=== PATIENT | female | born 1955 | race Caucasian/White ===

== ENCOUNTER 2020-09-27 08:04 | Emergency (ER) | payer MEDICAID, MEDICARE, OTHER ==
[~2020-09-27] VITALS: Ht 149.9 cm; Wt 59.9 kg
[2020-09-27 09:04] LABS: BASO % 0.2 % (0.0-1.0); EOS % 0.2 % (0.0-3.0); HEMATOCRIT 44.1 % (36.0-47.0); HEMOGLOBIN 13.4 g/dl (12.0-15.5); LYMPH # 1.1 10^3/uL (1.5-5.0); LYMPH % 8.2 % (24.0-44.0); MEAN CORPUSCULAR HEMOGLOBIN 27.3 pg (27.0-33.0); MEAN CORPUSCULAR HGB CONC 30.4 g/dl (32.0-36.5); MEAN CORPUSCULAR VOLUME 89.8 fl (80.0-96.0); MONO % 15.4 % (2.0-8.0); NEUTROPHILS % 75.6 % (36.0-66.0); PLATELET COUNT, AUTOMATED 693 10^3/uL (150-450); RED BLOOD COUNT 4.91 10^6/uL (4.00-5.40)
[2020-09-27 09:05] LABS: WHITE BLOOD COUNT 13.2 10^3/uL (4.0-10.0)
[2020-09-27 09:28] LABS: ALBUMIN 3.5 GM/DL (3.2-5.2); ALT/SGPT 16 U/L (12-78); BILIRUBIN,DIRECT 0.1 MG/DL (0.0-0.2); BILIRUBIN,TOTAL 0.4 MG/DL (0.2-1.0); BLOOD UREA NITROGEN 25 MG/DL (7-18); CALCIUM LEVEL 9.9 MG/DL (8.8-10.2); CARBON DIOXIDE LEVEL 25 MEQ/L (21-32); CHLORIDE LEVEL 106 MEQ/L (98-107); CK-MB VALUE MASS < 1.0 NG/ML (<3.6); CPK CREATINE PHOSPHOKINASE 26 U/L (26-192); CREATININE FOR GFR 0.41 MG/DL (0.55-1.30); GLOMERULAR FILTRATION RATE > 60.0 (>45); GLUCOSE, FASTING 102 MG/DL (70-100); MB/CK RELATIVE INDEX 3.85 (< OR =4); POTASSIUM SERUM 4.1 MEQ/L (3.5-5.1); SODIUM LEVEL 140 MEQ/L (136-145); TOTAL PROTEIN 7.4 GM/DL (6.4-8.2); TROPONIN I < 0.02 NG/ML (< 0.10)
[2020-09-27 09:54] LABS: PROTHROMBIN TIME 13.4 SECONDS (12.5-14.3)
[2020-09-27 09:58] LABS: THYROID STIMULATING HORMONE 2.64 uIU/ML (0.358-3.740)
--- NOTE | 2020-09-27 10:09 | REP ---
INDICATION: shortness of breath/effusion. COMPARISON: None. TECHNIQUE: CT chest performed without the use of intravenous contrast. Sagittal and coronal reconstruction images are performed. FINDINGS: There is a huge left chest wall mass which demonstrates lobulated margins. The epicenter is in the chest wall with associated lytic destruction of the left 6th and 7th ribs laterally. Maximum diameter is between 15 and 16 cm. There is also mild destruction of the posterolateral left 8th rib. There are both intrathoracic and extra thoracic components there is extensive compressive atelectasis of the left lung. Superior to the mass there is a loculated pleural fluid collection measuring about 13.8 x 7.1 cm. There is superior left pleural thickening with 2 pleural-based nodular opacities in the left apex measuring 9 mm in diameter. Inferior to the mass there is another loculated pleural fluid collection measuring about 14.4 x 9.6 cm. There is shift of heart and mediastinal structures to the right. Heart is not significantly enlarged. The thoracic aorta is normal in caliber. No axillary or mediastinal adenopathy is visualized. There is a 1 cm nodule in the lateral aspect of the right middle lobe. Multiple innumerable cutaneous nodules are visualized bilaterally throughout the chest wall and visualized abdominal wall. Largest of these is in the posterior abdominal wall in the midline at the level of the mid lumbar spine, approximately 4 cm in diameter. IMPRESSION: Huge left chest wall mass with intrathoracic and extra thoracic components. There is a lytic destruction of the left 6th and 7th ribs laterally and mild lytic destruction of the posterolateral left 8th rib. There is compressive atelectasis of the left lung with shift of heart and mediastinal structures to the right. Loculated pleural fluid is seen both superior and inferior to the mass. Two pleural based nodular opacities in the left apex measuring 9 mm and there is a 1 cm nodule in the right middle lobe. There are multiple innumerable cutaneous nodules, the largest measures 4 cm in diameter. <Electronically signed by Frankie Lorenzo > 09/27/20 1000
--- NOTE | 2020-09-27 10:11 | REP ---
INDICATION: CHEST PAIN. COMPARISON: No comparison chest x-ray. TECHNIQUE: Portable upright AP chest radiograph. FINDINGS: There is a dextroconvex curvature in the thoracic spine. There is a large mass occupying most of the left hemithorax. There is a localized rib destruction and in the left lower lateral rib cage involving rib numbers 678 and may be 9. There is extra thoracic mass effect projecting over the left breast along the left lateral chest wall. These findings suggest a large destructive mass in the left chest wall. Cardiac size difficult to gauge because of the opacification in the left hemithorax. There is diffuse osteopenia. The right lung is essentially clear.. Multiple cutaneous nodules are also evident. IMPRESSION: The left hemithorax is largely opacified by a large mass effect with extensive left lateral chest wall destructive change and extra thoracic soft tissue mass effect. Multiple cutaneous nodules are seen. Question lung malignancy versus sarcoma.. <Electronically signed by Dannie Pete > 09/27/20 1851
[2020-09-27 11:45] VITALS: BP 145/75
[2020-09-27 12:27] LABS: RSV AMPLIFICATION NEGATIVE (NEGATIVE)
--- NOTE | 2020-09-27 23:00 | ECGEPIP ---
[facility] - ED Test Date: 2020-09-27 Pat Name: KENZIE AMIN Department: Room: - Gender: Female Filler Spreader: Tiburcio WINCHESTER : 1955 Requested By: FLOYD Lofton Order Number: [id number] Reading MD: Obey Perez Measurements Intervals [place] Rate: 127 P: 39 VT: 136 QRS: 23 QRSD: 68 T: 38 QT: 282 QTc: 409 Interpretive Statements Sinus tachycardia NO PRIORS FOR COMPARISON Electronically Signed on 09-27-2020 22:59:38 EDT by Obey Perez
== END 2020-09-27 12:34 | disposition left against medical advice (07) ==
LOC: M ED 08:04
DX: R22.2 Localized swelling, mass and lump, trunk (principal); Z53.21 Procedure and treatment not carried out due to patient leaving prior to being seen by health care provider; R00.0 Tachycardia, unspecified; R91.8 Other nonspecific abnormal finding of lung field; R93.1 Abnormal findings on diagnostic imaging of heart and coronary circulation; J94.2 Hemothorax; F17.200 Nicotine dependence, unspecified, uncomplicated; Z88.0 Allergy status to penicillin; Z88.8 Allergy status to other drugs, medicaments and biological substances

== ENCOUNTER 2020-10-13 22:52 | Emergency (ER) | payer MEDICARE ==
[~2020-10-13] VITALS: Ht 149.9 cm; Wt 60.0 kg
[2020-10-13] MEDS ORDERED: ACET1TAB55 PO (23:46)
[2020-10-14 01:54] LABS: BASO % 0.3 % (0.0-1.0); EOS % 0.3 % (0.0-3.0); HEMATOCRIT 39.7 % (36.0-47.0); HEMOGLOBIN 11.9 g/dl (12.0-15.5); LYMPH # 1.3 10^3/uL (1.5-5.0); LYMPH % 9.1 % (24.0-44.0); MEAN CORPUSCULAR HEMOGLOBIN 26.9 pg (27.0-33.0); MEAN CORPUSCULAR VOLUME 89.8 fl (80.0-96.0); MONO # 2.2 10^3/uL (0.0-0.8); MONO % 15.6 % (2.0-8.0); NEUTROPHILS # 10.5 10^3/uL (1.5-8.5); NEUTROPHILS % 74.3 % (36.0-66.0); PLATELET COUNT, AUTOMATED 630 10^3/uL (150-450); RED BLOOD COUNT 4.42 10^6/uL (4.00-5.40)
[2020-10-14 02:08] LABS: INR 1.08; PROTHROMBIN TIME 14.2 SECONDS (12.5-14.3)
[2020-10-14 02:09] LABS: PARTIAL THROMBOPLASTIN TIME 37.8 SECONDS (24.2-38.5)
[2020-10-14 02:11] LABS: ALBUMIN 3.3 GM/DL (3.2-5.2); ALT/SGPT 15 U/L (12-78); BILIRUBIN,DIRECT 0.1 MG/DL (0.0-0.2); BILIRUBIN,TOTAL 0.3 MG/DL (0.2-1.0); BLOOD UREA NITROGEN 26 MG/DL (7-18); CALCIUM LEVEL 9.3 MG/DL (8.8-10.2); CARBON DIOXIDE LEVEL 24 MEQ/L (21-32); CHLORIDE LEVEL 106 MEQ/L (98-107); CK-MB VALUE MASS < 1.0 NG/ML (<3.6); CPK CREATINE PHOSPHOKINASE 30 U/L (26-192); CREATININE FOR GFR 0.44 MG/DL (0.55-1.30); GLOMERULAR FILTRATION RATE > 60.0 (>45); GLUCOSE, FASTING 97 MG/DL (70-100); LIPASE 65 U/L (73-393); MB/CK RELATIVE INDEX 3.33 (< OR =4); POTASSIUM SERUM 4.5 MEQ/L (3.5-5.1); SODIUM LEVEL 138 MEQ/L (136-145); TROPONIN I < 0.02 NG/ML (< 0.10)
[2020-10-14 02:12] LABS: WHITE BLOOD COUNT 14.1 10^3/uL (4.0-10.0)
--- NOTE | 2020-10-14 02:31 | REPVR ---
PROCEDURE INFORMATION: Exam: XR Chest Exam date and time: 10/14/2020 1:55 AM Age: 65 years old Clinical indication: Other: Abdominal pain TECHNIQUE: Imaging protocol: XR of the chest. Views: 2 views. COMPARISON: CT Chest without contrast 09/27/2020 9:21 AM FINDINGS: Large left hemithorax mass with destruction of multiple ribs, as seen on recent CT from September 27. Essentially identical appearance. No pneumothorax and the right lung appears unremarkable. No pulmonary edema. Scoliosis deformity is present. No subdiaphragmatic air. Multiple cutaneous nodules as seen on CT IMPRESSION: Complex left hemithorax and chest wall mass with unchanged appearance compared to the prior exam. No new abnormality Electronically signed by: Masoud Coppola On 10/14/2020 02:30:58 AM
[2020-10-14] MEDS ORDERED: LR 1,000 ML IV ONE (02:35)
[2020-10-14] MEDS ORDERED: MORPHINE 2 MG/ML 1ML VIAL (J2270) IV ONE (02:35)
[2020-10-14] MEDS ORDERED: CYCLOBENZAPRINE 10MG TABLET PO ONE (02:35)
--- NOTE | 2020-10-14 04:05 | REPVR ---
PROCEDURE INFORMATION: Exam: CT Chest Without Contrast; Diagnostic Exam date and time: 10/14/2020 2:43 AM Age: 65 years old Clinical indication: Condition or disease; Chest deformity; Patient HX: Known mass TECHNIQUE: Imaging protocol: Diagnostic computed tomography of the chest without contrast. 3D rendering (Not supervised by radiologist): MIP and/or 3D reconstructed images were created by the technologist. Radiation optimization: All CT scans at this facility use at least one of these dose optimization techniques: automated exposure control; mA and/or kV adjustment per patient size (includes targeted exams where dose is matched to clinical indication); or iterative reconstruction. COMPARISON: CT Chest without contrast 09/27/2020 9:21 AM FINDINGS: Lungs: Redemonstration of a very large partially visualized heterogeneous partially necrotic mass along the left lung base with invasion of the chest wall. The mass has somewhat increased in size and currently measures approximately 17 cm AP by 15 cm transverse by at least 17 cm craniocaudal. Compressive atelectasis of the left lung with [id number] mediastinal shift. Interval increase in the size of a right middle lobe metastasis currently measuring 1.6 cm versus 9 mm on prior exam. Pleural spaces: Extensive left pleural nodularity and thickening. Appearance of large loculated left pleural effusion. Heart: Atherosclerotic disease of the coronary arteries. Aorta: Atherosclerotic disease of the thoracic aorta. Lymph nodes: Mediastinal adenopathy. Bones/joints: There is destruction of the underlying 6th and 7th left lateral ribs with a pathologic fracture of the posterolateral left 8th rib. Soft tissues: Innumerable cutaneous soft tissue masses along the entire visualized chest wall. IMPRESSION: Redemonstration of a very large partially visualized heterogeneous partially necrotic mass along the left lung base with invasion of the chest wall. The mass has somewhat increased in size and currently measures approximately 17 cm AP by 15 cm transverse by at least 17 cm craniocaudal. There is destruction of the underlying 6th and 7th left lateral ribs with a pathologic fracture of the posterolateral left 8th rib. Interval increase in the size of a right middle lobe metastasis currently measuring 1.6 cm versus 9 mm on prior exam. Extensive left pleural nodularity and thickening. Appearance of large loculated left pleural effusion. Electronically signed by: Yonatan Goodman On 10/14/2020 04:05:15 AM
[2020-10-14] MEDS ORDERED: fentaNYL 100 MCG/2 ML INJECTION (J3010) IV ONE ×2 (05:10→07:25)
[2020-10-14] MEDS ORDERED: VANCOMYCIN HCL 1,000 MG, VIAL MATE ADAPTER 1 EACH in NS 250 ML IV STA (06:23)
[2020-10-14] MEDS ORDERED: LevoFLOXacin IV 750 MG in IV 1 EA IV ONE (06:25)
[2020-10-14 08:00] VITALS: BP 152/92
== END 2020-10-14 08:15 | disposition short-term general hospital (02) ==
LOC: M ED 22:52
DX: R91.8 Other nonspecific abnormal finding of lung field (principal); C34.90 Malignant neoplasm of unspecified part of unspecified bronchus or lung; I10 Essential (primary) hypertension; Z88.0 Allergy status to penicillin; Z88.8 Allergy status to other drugs, medicaments and biological substances
CPT/HCPCS: 36415; 71046; 71250; 80048; 80076; 82550; 82553; 83690; 84484; 85025; 85610; 85730; 87798; 93041; 96365; 96366; 96367; 96375; 96376; 99285; J1956; J2270; J3010; J3370